=== PATIENT | male | born 1970 | race Caucasian/White ===

== ENCOUNTER → 2016-07-20 | Outpatient (REF) | payer BC, OTHER | LOC: M LAB REF 16:33 | PROVIDERS: ATTEND Physician Assistant | DX: R50.9 Fever, unspecified (principal); J02.9 Acute pharyngitis, unspecified ==

== ENCOUNTER → 2017-03-10 | Outpatient (REF) | payer BC | LOC: M LAB REF 11:57 | DX: R50.9 Fever, unspecified (principal); R05 Cough ==

== ENCOUNTER → 2017-12-27 | Outpatient (CLI) | payer OTHER | LOC: M WUC 15:26 | DX: R06.02 Shortness of breath (principal); R05 Cough | CPT/HCPCS: 71046 ==

== ENCOUNTER 2024-04-03 18:13 | Emergency (ER) | payer BC, OTHER ==
[~2024-04-03] VITALS: Ht 170.2 cm; Wt 75.6 kg
[2024-04-03] MEDS ORDERED: AMLO1TAB24 (18:25)
[2024-04-03] MEDS ORDERED: LISI40TA4 (18:25)
[2024-04-03] MEDS ORDERED: ATOR1TAB21 (18:25)
[2024-04-03] MEDS ORDERED: CETI-24 (18:25)
[2024-04-03 19:17] LABS: BASO # 0.1 10^3/uL (0.0-0.2); BASO % 0.4 % (0.0-1.0); EOS % 0.1 % (0.0-3.0); HEMATOCRIT 44.7 % (42.0-52.0); HEMOGLOBIN 14.9 g/dl (13.5-17.5); LYMPH # 1.2 10^3/uL (1.5-5.0); LYMPH % 8.6 % (24.0-44.0); MEAN CORPUSCULAR HEMOGLOBIN 33.1 pg (27.0-33.0); MEAN CORPUSCULAR HGB CONC 33.3 g/dl (32.0-36.5); MEAN CORPUSCULAR VOLUME 99.3 fl (80.0-96.0); MONO # 0.4 10^3/uL (0.0-0.8); MONO % 2.6 % (2.0-8.0); NEUTROPHILS % 87.9 % (36.0-66.0); PLATELET COUNT, AUTOMATED 234 10^3/uL (150-450); WHITE BLOOD COUNT 13.7 10^3/uL (4.0-10.0)
[2024-04-03 19:41] LABS: LIPASE 27 U/L (12-53)
[2024-04-03 19:43] LABS: ALBUMIN 3.8 G/DL (3.2-5.2); ALKALINE PHOSPHATASE 77 U/L (40-129); ALT/SGPT 26 U/L (7.0-40); AST/SGOT 14 U/L (<34); BILIRUBIN,DIRECT 0.3 MG/DL (<0.4); BILIRUBIN,TOTAL 0.9 MG/DL (0.3-1.2); BLOOD UREA NITROGEN 15 MG/DL (9-23); CALCIUM LEVEL 8.9 MG/DL (8.5-10.1); CARBON DIOXIDE LEVEL 26 MMOL/L (20-31); CHLORIDE LEVEL 105 MMOL/L (98-107); CREATININE FOR GFR 0.84 MG/DL (0.70-1.30); GLOMERULAR FILTRATION RATE > 60.0 (>56); GLUCOSE, FASTING 217 MG/DL (60-100); POTASSIUM SERUM 4.7 MMOL/L (3.5-5.1); SODIUM LEVEL 142 MMOL/L (136-145); TOTAL PROTEIN 6.4 G/DL (5.7-8.2)
[2024-04-03] MEDS: ONDANSETRON 4MG 2ML VIAL IV ONE (20:06)
[2024-04-03] MEDS: KETOROLAC 30 MG/ML 1ML VIAL IV ONE (20:07)
[2024-04-03] MEDS ORDERED: PANTOPRAZOLE 40MG VIAL IV ONE (23:15)
[2024-04-03] MEDS ORDERED: SUCRALFATE SUSP 1GM/10ML UD PO ONE (23:15)
[2024-04-03] MEDS: NS 500 ML IV ONE (23:21)
[2024-04-03 23:51] LABS: KETONE, URINE AUTO RFX 1+ mg/dL (NEGATIVE); LEUKOCYTE ESTERASE UR AUTO RFX NEGATIVE (NEGATIVE); MUCUS, URINE RFX SMALL (NEGATIVE); NITRITE, URINE AUTO RFX NEGATIVE (NEGATIVE); RBC, URINE AUTO RFX 102 /HPF (0-3); SQUAM EPITHELIAL CELL UR AURFX 0 /HPF (0-6); WBC, URINE AUTO RFX 9 /HPF (0-3)
[2024-04-03 23:54] LABS: HEMOGLOBIN A1c 6.2 % (4.0-6.0)
[2024-04-04] MEDS: MORPHINE 2 MG/ML 1ML VIAL IV ONE (00:07)
[2024-04-04] MEDS ORDERED: KETO10TAB PO (00:47)
[2024-04-04] MEDS ORDERED: FLOM0.4C39 PO (00:47)
[2024-04-04] MEDS ORDERED: ONDA-282 PO (00:47)
[2024-04-04] MEDS ORDERED: PERC5TAB12 PO (00:47)
[2024-04-04] MEDS: TAMSULOSIN 0.4 MG CAP PO ONE (00:49)
[2024-04-04] MEDS: HYDROMORPHONE HCL 0.5 MG/ 0.5 ML SYRINGE IV PRN (00:49)
[2024-04-04 01:30] VITALS: BP 134/63; TEMP 97; O2SAT 93
[2024-04-04] MEDS: PERCOCET 5MG/325MG TAB PO ONE (01:30)
== END 2024-04-04 01:34 | disposition home or self-care (01) ==
LOC: M ED 18:13
DX: N20.1 Calculus of ureter (principal); N23 Unspecified renal colic; F17.200 Nicotine dependence, unspecified, uncomplicated; Z87.442 Personal history of urinary calculi; Z79.02 Long term (current) use of antithrombotics/antiplatelets; Z79.811 Long term (current) use of aromatase inhibitors; Z79.83 Long term (current) use of bisphosphonates; Z79.899 Other long term (current) drug therapy; Z88.8 Allergy status to other drugs, medicaments and biological substances
CPT/HCPCS: 74176; 80048; 80076; 81001; 83036; 83690; 85025; 96361; 96374; 96375; 99285; J1171; J1885; J2405

== ENCOUNTER 2024-04-18 12:39 | Emergency (ER) | payer BC ==
[~2024-04-18] VITALS: Ht 170.2 cm; Wt 76.6 kg
[~2024-04-18 12:39] MED LIST: AMLO1TAB24; ATOR1TAB21; CETI-24; FLOM0.4C39 PO; KETO10TAB PO; LISI40TA4; ONDA-282 PO; PERC5TAB12 PO
[2024-04-18 14:29] LABS: BASO % 0.2 % (0.0-1.0); HEMATOCRIT 45.2 % (42.0-52.0); HEMOGLOBIN 15.2 g/dl (13.5-17.5); LYMPH # 0.9 10^3/uL (1.5-5.0); LYMPH % 5.2 % (24.0-44.0); MEAN CORPUSCULAR HGB CONC 33.6 g/dl (32.0-36.5); MEAN CORPUSCULAR VOLUME 101.1 fl (80.0-96.0); MONO # 0.8 10^3/uL (0.0-0.8); MONO % 4.4 % (2.0-8.0); NEUTROPHILS # 15.9 10^3/uL (1.5-8.5); NEUTROPHILS % 89.7 % (36.0-66.0); PLATELET COUNT, AUTOMATED 240 10^3/uL (150-450); RED BLOOD COUNT 4.47 10^6/uL (4.30-6.10); WHITE BLOOD COUNT 17.8 10^3/uL (4.0-10.0)
[2024-04-18 14:42] LABS: KETONE, URINE AUTO RFX 1+ mg/dL (NEGATIVE); LEUKOCYTE ESTERASE UR AUTO RFX NEGATIVE (NEGATIVE); MUCUS, URINE RFX SMALL (NEGATIVE); NITRITE, URINE AUTO RFX NEGATIVE (NEGATIVE); RBC, URINE AUTO RFX 3 /HPF (0-3); SQUAM EPITHELIAL CELL UR AURFX 0 /HPF (0-6); WBC, URINE AUTO RFX 1 /HPF (0-3)
[2024-04-18 14:48] LABS: LIPASE 26 U/L (12-53)
[2024-04-18 14:50] LABS: ALKALINE PHOSPHATASE 72 U/L (40-129); ALT/SGPT 24 U/L (7.0-40); AST/SGOT 15 U/L (<34); BILIRUBIN,DIRECT 0.2 MG/DL (<0.4); BILIRUBIN,TOTAL 0.8 MG/DL (0.3-1.2); BLOOD UREA NITROGEN 21 MG/DL (9-23); CALCIUM LEVEL 9.2 MG/DL (8.5-10.1); CARBON DIOXIDE LEVEL 26 MMOL/L (20-31); CHLORIDE LEVEL 108 MMOL/L (98-107); CREATININE FOR GFR 1.21 MG/DL (0.70-1.30); GLOMERULAR FILTRATION RATE > 60.0 (>56); GLUCOSE, FASTING 176 MG/DL (60-100); POTASSIUM SERUM 4.9 MMOL/L (3.5-5.1); SODIUM LEVEL 142 MMOL/L (136-145); TOTAL PROTEIN 6.6 G/DL (5.7-8.2)
[2024-04-18] MEDS: NS (Normal Saline) 0.9% 1,000 ML IV ONE (17:03)
[2024-04-18] MEDS: ONDANSETRON 4MG 2ML VIAL IV ONE (17:21)
[2024-04-18] MEDS: KETOROLAC 30 MG/ML 1ML VIAL IV ONE (17:21)
[2024-04-18] MEDS ORDERED: SULF1TAB23 PO (19:12)
[2024-04-18] MEDS: MORPHINE 4 MG/ML 1ML VIAL IV ONE (19:20)
[2024-04-18] MEDS: METHOCARBAMOL 1,000 MG/10 ML VIAL IV ONE (19:55)
[2024-04-18 20:07] VITALS: TEMP 98.5
[2024-04-18] MEDS: fentaNYL 100 MCG/2 ML INJECTION IV ONE (21:25)
[2024-04-18 21:30] VITALS: BP 127/70
[2024-04-18 21:39] VITALS: O2SAT 93
== END 2024-04-18 22:04 | disposition home or self-care (01) ==
LOC: M ED 12:39
DX: N20.0 Calculus of kidney (principal); N13.30 Unspecified hydronephrosis; N23 Unspecified renal colic; I10 Essential (primary) hypertension; E78.5 Hyperlipidemia, unspecified; K57.30 Diverticulosis of large intestine without perforation or abscess without bleeding; M89.8X8 Other specified disorders of bone, other site; M51.360 Other intervertebral disc degeneration, lumbar region with discogenic back pain only; F17.200 Nicotine dependence, unspecified, uncomplicated; Z87.442 Personal history of urinary calculi; Z88.8 Allergy status to other drugs, medicaments and biological substances; Z79.02 Long term (current) use of antithrombotics/antiplatelets; Z79.2 Long term (current) use of antibiotics; Z79.899 Other long term (current) drug therapy
CPT/HCPCS: 74176; 80048; 80076; 81001; 83690; 85025; 96361; 96374; 96375; 99284; J1885; J2405; J3010

== ENCOUNTER → 2024-04-26 | Outpatient (REF) | payer BC ==
[~2024-04-26] MED LIST changes: +SULF1TAB23 PO
== END ==
LOC: M SMT 17:03
PROVIDERS: ATTEND Nurse Practitioner Family
DX: Z87.442 Personal history of urinary calculi (principal)